=== PATIENT | female | born 1940 | race African-American/Black ===

== ENCOUNTER 2022-07-02 16:12 | Emergency (ER) | payer OTHER, MEDICAID ==
[~2022-07-02] VITALS: Ht 170.2 cm; Wt 80.0 kg
[~2022-07-02 16:12] MED LIST: DIAZ5TAB PO; FOLI1TAB6 PO; FURO1TAB33 PO; INDA2.5T OR; METF-370 OR; METH2.5T30 PO; PIOG45TA11 OR; POTA8TAB2 OR; PRED5PAK8 PO; VALS320T15 PO
[2022-07-02] MEDS ORDERED: SODIUM CHLORIDE 0.9% 500 ML IV ONE (16:45)
[2022-07-02 16:55] LABS: Basophils # (auto) 0.1 10 ^3/uL (0-0.2); Basophils % (auto) 1.2 % (0.0-2.0); Eosinophils # (auto) 0.2 10 ^3/uL (0-0.8); Eosinophils % (auto) 2.5 % (0.0-7.0); Hematocrit 38.2 % (36.0-46.0); Hemoglobin 12.4 g/dL (12.2-16.2); Lymphocytes % (auto) 17.4 % (10.0-50.0); Mean Corpuscular Hemoglobin 32.4 pg (28.0-32.0); Mean Corpuscular Hgb Conc. 32.5 g/dL (32.0-36.0); Mean Corpuscular Volume 99.6 fL (80.0-100.0); Monocytes # (auto) 0.3 10 ^3/uL (0-1.3); Monocytes % (auto) 5.1 % (0.0-12.0); Neutrophils # (auto) 4.4 10 ^3/uL (1.6-8.6); Neutrophils % (auto) 73.8 % (37.0-80.0); Nucleated Red Blood Cells % 0.1 %; Red Blood Cells 3.84 10^6/uL (4.0-5.20); Red Cell Distribution Width 14.2 % (11.8-14.3)
[2022-07-02 17:17] LABS: Albumin 3.7 g/dL (3.4-5.0); BUN/Creatinine Ratio 16.7; Calcium 9.5 mg/dL (8.5-10.1); Potassium 4.1 mmol/L (3.5-5.1)
[2022-07-02 17:19] LABS: Bilirubin, Total 0.7 mg/dL (0.2-1.0); Lactic Acid w/Reflex 3.8 mmol/L (0.4-2.0); Total Protein 7.7 g/dL (6.4-8.2)
[2022-07-02] MEDS ORDERED: SODIUM CHLORIDE 0.9% 1,000 ML IV ONE (20:15)
[2022-07-03 01:24] LABS: Urine Bacteria FEW /hpf (None Seen); Urine Blood Negative /uL (Negative); Urine Hyaline Cast FEW /lpf (0 - 2); Urine Specific Gravity 1.015 (1.001-1.035); Urine WBC 7 /hpf (0 - 5)
[2022-07-03 02:24] VITALS: BP 157/71
[2022-07-03] MEDS ORDERED: cefTRIAXone 1GM/50ML D5W 50 ML IV ONE (02:45)
== END 2022-07-03 02:41 | disposition short-term general hospital (02) ==
LOC: EDBD 16:12 → EDUNIT# 16:12 → ER 16:12
DX: R55 Syncope and collapse (principal); N39.0 Urinary tract infection, site not specified; R74.02 Elevation of levels of lactic acid dehydrogenase [LDH]; Z20.822 Contact with and (suspected) exposure to COVID-19
CPT/HCPCS: 36415; 71045; 80053; 81001; 83605; 84484; 85025; 87426; 96361; 96365; 99285; J7030; J7040